=== PATIENT | female | born 1985 | race Caucasian/White ===

== ENCOUNTER 2024-04-22 11:34 | Inpatient (IN) ==
[2024-04-22] MEDS: SODIUM CHLORIDE 0.9% 1,000 ML IV SCH (12:33)
[2024-04-22] MEDS: ACETAMINOPHEN 1,000 MG/100 ML VIAL IV STA (12:35)
[2024-04-22] MEDS: cefTRIAXone SODIUM 2,000 MG/50 ML BAG IV STA (12:35)
--- NOTE | 2024-04-22 12:35 | XRay Report ---
XR chest 1V portable CLINICAL HISTORY: Sepsis COMPARISON STUDY: 11/13/2008 FINDINGS: There are interval metallic foreign bodies overlying the upper chest centrally. Heart size and pulmonary vasculature are normal. Inspiration is shallow. No effusion, consolidation, or pneumoth orax. IMPRESSION: 1. Interval foreign bodies overlying the upper central chest. 2. No other acute findings seen. ACT 112: Negative or not required by law. Electronically signed by: Prakash Gay M.D. 04/22/2024 12:33 PM
[2024-04-22 12:48] LABS: Basophils # (auto) 0.03 K/uL (0.00-0.20); Basophils % (auto) 0.4 %; Eosinophils # (auto) 0.03 K/uL (0.00-0.50); Eosinophils % (auto) 0.4 %; Hematocrit (blood only) 32.9 % (37.0-47.0); Hemoglobin 11.2 g/dl (12.0-16.0); Immature Granulocytes # (auto) 0.02 K/uL (0.01-0.20); Immature Granulocytes % (auto) 0.3 %; Lymphocytes # (auto) 1.28 K/uL (1.20-3.40); Lymphocytes % (auto) 18.2 %; Mean Corpuscular Volume 82.3 fL (80.0-100.0); Mean Platelet Volume 9.6 fL (9.4-12.4); Monocytes # (auto) 0.35 K/uL (0.11-0.59); Neutrophils # (auto) 5.34 K/uL (1.40-6.50); Neutrophils % (auto) 75.7 %; Platelet Count 430 K/uL (130-400); RDW Coefficient of Variation 12.8 % (11.5-14.5); RDW Standard Deviation 38.9 fL (36.4-46.3); White Blood Count 7.05 K/ul (4.8-10.8)
[2024-04-22 13:06] LABS: Alanine Aminotransferase 13 U/L (7-52); Albumin Level 3.3 gm/dl (3.4-5.0); Alkaline Phosphatase 139 U/L (34-104); Anion Gap 12 (3-11); Aspartate Aminotransferase 23 U/L (13-39); Bilirubin Direct 0.1 mg/dl (0-0.2); Bilirubin,Total 0.4 mg/dl (0.2-1.0); Blood Urea Nitrogen 4 mg/dl (6-23); Calcium 8.9 mg/dl (8.6-10.3); Carbon Dioxide 22 mmol/L (21-32); Chloride 87 mmol/L (98-107); Glucose 104 mg/dl (70-99(Fasting)); Lipase 25 U/L (11-82); Magnesium 1.4 mg/dl (1.7-2.4); Phosphorus 2.6 mg/dl (2.5-4.9); Potassium 3.7 mmol/L (3.5-5.1); Sodium 121 mmol/L (136-145); Total Protein 6.6 gm/dl (6.0-8.3)
[2024-04-22 13:12] LABS: Troponin I High Sensitivity 3.5 pg/ml (0-14)
[2024-04-22 13:18] LABS: INR 1.4 (0.9-1.1); Prothrombin Time 14.6 Seconds (9.0-12.0)
[2024-04-22 13:20] LABS: Thyroid Stimulating Hormone 0.657 uIu/ml (0.300-4.500)
[2024-04-22] MEDS: OPTIRAY 320 125ml IV ONE (13:37)
[2024-04-22 13:50] LABS: Adenovirus PCR Not Detected (NotDetected); Bordetella parapertussis PCR Not Detected (NotDetected); Bordetella pertussis PCR Not Detected (NotDetected); Chlamydia pneumoniae PCR Not Detected (NotDetected); Coronavirus 229E PCR Not Detected (NotDetected); Coronavirus CoV-2 (COVID19)PCR Not Detected (NotDetected); Coronavirus HKU1 PCR Not Detected (NotDetected); Coronavirus NL63 PCR Not Detected (NotDetected); Coronavirus OC43PCR Not Detected (NotDetected); Human Metapneumovirus PCR Not Detected (NotDetected); Influenza A PCR Not Detected (NotDetected); Influenza B PCR Not Detected (NotDetected); Mycoplasma pneumoniae PCR Not Detected (NotDetected); Parainfluenza Virus 1 PCR Not Detected (NotDetected); Parainfluenza Virus 2 PCR Not Detected (NotDetected); Parainfluenza Virus 3 PCR Not Detected (NotDetected); Parainfluenza Virus 4 PCR Not Detected (NotDetected); Respiratory Syncytial VirusPCR Not Detected (NotDetected); Rhinovirus/Enterovirus PCR Not Detected (NotDetected)
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
--- NOTE | 2024-04-22 14:12 | CT Scan Report ---
ABDOMEN AND PELVIS CT WITH IV CONTRAST HISTORY: Acute sepsis with fever sepsis, fever, h/o paraplegia, wound vacs TECHNIQUE: Multiaxial CT images of the abdomen and pelvis were performed following the IV administrat ion of 118 cc of Optiray, A dose lowering technique was utilized adhering to the principles of ALARA . COMPARISON STUDY: CT chest of same day FINDINGS: Chest CT dictated separately. Mild linear left basilar atelectasis versus scarring. There i s no pneumatosis or pneumoperitoneum. Unremarkable spleen, pancreas, gallbladder, adrenal glands and liver. Patency of the hepatic and port al veins. There are a few subcentimeter hypodensities of the kidneys which are too small to character ize, likely cysts. No hydronephrosis. Decompressed bladder with suprapubic catheter in place. Unremar kable uterus. 3.6 m left ovarian dermoid. Moderate atherosclerosis of the aorta. Subcentimeter retrop eritoneal lymph nodes are likely physiologic. No bowel obstruction or bowel wall thickening. Left lower quadrant colostomy. Normal appendix. Postop erative changes of the spine. Soft tissue thickening within the right superior gluteal cleft suggesti ve of a chronic ulcer. Moderate asymmetric edema and prominence of the right gluteal musculature. Dem ineralized appearance of the bones with postoperative changes of the lumbar spine. Prominence of the soft tissues surrounding the left hip. Chronic bony defect at S4 with absent inferior sacrum and cocc yx. IMPRESSION: 1. Sacral decubitus ulcer with chronic osteomyelitis of the sacrum/coccyx. There is cellulitis at the ulcer site without drainable abscess. 2. Asymmetric prominence and edema within the right gluteal musculature. 3. No bowel obstruction or bowel wall thickening. 4. Left ovarian dermoid. 5. Incidental findings as above. ACT 112: Negative or not required by law. The above report was generated using voice recognition software. It may contain grammatical, syntax o r spelling errors. Electronically signed by: Olivier Vega M.D. 04/22/2024 2:10 PM
[2024-04-22] MEDS ORDERED: GLUCAGON FOR INJ 1 MG VIAL SQ PRN (14:44)
[2024-04-22] MEDS ORDERED: DEXTROSE 50% 50 ML SYRINGE IV PRN (14:44)
[2024-04-22] MEDS ORDERED: CARBOHYDRATES FOR HYPOGLYCEMIA PO PRN (14:44)
[2024-04-22] MEDS ORDERED: GLUCOSE 40% GEL 15 GM TUBE PO PRN (14:44)
[2024-04-22] MEDS ORDERED: GLUCOSE 10 TAB/TUBE PO PRN (14:44)
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
[2024-04-22] MEDS ORDERED: VANCOMYCIN CONSULT ACTIVE PRN (16:01)
--- NOTE | 2024-04-22 16:19 | Electrocardiogram Report ---
Test Reason : Blood Pressure : */* mmHG Vent. Rate : 96 BPM Atrial Rate : 96 BPM P-R Int : 142 ms QRS Dur : 74 ms QT Int : 330 ms P-R-T Axes : -20 8 -18 degrees QTcB Int : 416 ms Normal sinus rhythm Low voltage QRS Nonspecific T wave abnormality Abnormal ECG Confirmed by Elbert Almonte ([id number]) on 04/22/2024 4:18:35 PM Referred By: Confirmed By: Elbert Almonte
[2024-04-22] MEDS: MAGNESIUM SULFATE / D5W 1 GM/100 ML BAG IV SCH (16:22)
[2024-04-22 17:00] LABS: Appearance Urine Clear (Clear); Bacteria Urine Automated 1+ (None Seen); Bilirubin Urine Negative (Negative); Blood Urine Trace (Negative); Cast Urine Automated 0-2 /lpf (0-2); Color Urine Yellow; Epithelial Cell Urine Auto 0-2 /hpf (0-2); Glucose Urine UA Negative (Negative); Ketones Urine 1+ (Negative); Leukocyte Esterase Urine 2+ (Negative); Nitrite Urine Negative (Negative); Protein Urine Negative (Negative); Specific Gravity Urine 1.022 (1.000-1.030); Urobilinogen Urine Negative (Negative); WBC Urine Automated 21-50 /hpf (0-5)
[2024-04-22] MEDS: FAMOTIDINE 20MG IV PUSH 20 MG/5 ML SYR IV SCH (17:15)
[2024-04-22] MEDS: PIPERACILLIN/TAZOBACTAM 4.5 GM/100 ML BAG IV SCH ×2 (17:15→21:21)
[2024-04-22] MEDS: VANCOMYCIN HCL 2,000 MG in SODIUM CHLORIDE 0.9% 500 ML IV SCH (18:28)
[2024-04-22 18:29] LABS: Adenovirus F 40/41 PCR Not Detected (NotDetected); Astrovirus PCR Not Detected (NotDetected); Campylobacter PCR Not Detected (NotDetected); Cryptosporidium PCR Not Detected (NotDetected); Cyclospora cayetanensis PCR Not Detected (NotDetected); Entamoeba histolytica PCR Not Detected (NotDetected); Enteroaggregative E.coli(EAEC) Not Detected (NotDetected); Enteropathogenic E.coli (EPEC) Not Detected (NotDetected); Enterotoxigenic E.coli (ETEC) Not Detected (NotDetected); Giardia lamblia PCR Not Detected (NotDetected); Plesiomonas shigelloides PCR Not Detected (NotDetected); Rotavirus A PCR Not Detected (NotDetected); Salmonella PCR Not Detected (NotDetected); Sapovirus PCR Not Detected (NotDetected); Shiga-like Toxin E.coli (STEC) Not Detected (NotDetected); Shigella/Enteroinvasive E.coli Not Detected (NotDetected); Vibrio cholerae PCR Not Detected (NotDetected); Vibrio species PCR Not Detected (NotDetected); Yersinia enterocolitica PCR Not Detected (NotDetected)
[2024-04-22 18:40] LABS: Norovirus GI/GII PCR DETECTED (NotDetected)
[2024-04-22] MEDS: INSULIN ASPART PER UNIT CHARGE SC SCH (19:24)
--- NOTE | 2024-04-22 19:59 | Communication Note ---
Date of Service: April 22, 2024 Stool BioFire positive for norovirus. This may explain patient's abdominal discomfort and nausea. Will continue with supportive care Check CRP in a.m. for further guidance on severity of wound and possible cellulitis of the sacrum.
[2024-04-22] MEDS: oxyCODONE HCL IR 5 MG TAB (IMMEDIATE RELEASE) PO PRN (21:11)
[2024-04-22] MEDS: GABAPENTIN 300 MG CAP PO SCH (21:30)
[2024-04-22] MEDS: HEPARIN SOD 5,000 UNIT/0.5 ML VIAL SQ SCH (21:35)
[2024-04-23] MEDS: ONDANSETRON 4 MG OD TAB PO PRN (01:52)
[2024-04-23] MEDS: VANCOMYCIN HCL 1,250 MG in SODIUM CHLORIDE 0.9% 250 ML IV SCH (02:14)
[2024-04-23 11:02] LABS: BUN Creatinine Ratio 4.9 (10-20); C Reactive Protein 3.86 mg/dl (0-0.5); Creatinine Clr Calc Pharmacy 136.7 ml/min; Potassium 3.5 mmol/L (3.5-5.1)
[2024-04-23 11:28] LABS: Partial Thromboplastin Ratio 1.2; Partial Thromboplastin Time 32 Seconds (21-31)
[2024-04-23] MEDS: FERROUS SULFATE 325 MG/7.4 ML UDP PO SCH (13:00)
[2024-04-23] MEDS: CHERRY SYRUP 5 ML UDP PO SCH (13:00)
[2024-04-23] MEDS: VANCOMYCIN HCL 125 MG/2.5ML SOLN PO SCH (13:01)
[2024-04-23] MEDS: DEXTROAMPHETAMINE/AMPHETAMINE IR 20 MG TAB PO SCH (13:01)
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
[2024-04-23] MEDS: AMOXICILLIN/CLAVULANATE 875 MG TAB PO SCH (17:50)
[2024-04-23] MEDS: HYDROmorphone INJ 0.5 MG/0.5 ML SYR IV PRN (20:48)
[2024-04-23] MEDS: DOXYCYCLINE HYCLATE 100 MG CAP PO SCH (20:48)
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
[2024-04-24] MEDS: ERTAPENEM 1000MG 1,000 MG/10 ML SYR IV SCH (17:06)
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
[2024-04-24] MEDS: GABAPENTIN 300 MG CAP PO SCH (21:12)
--- NOTE | 2024-04-24 21:56 | Electrocardiogram Report ---
Test Reason : Blood Pressure : */* mmHG Vent. Rate : 98 BPM Atrial Rate : 98 BPM P-R Int : 140 ms QRS Dur : 72 ms QT Int : 350 ms P-R-T Axes : 64 21 126 degrees QTcB Int : 446 ms Poor data quality, interpretation may be adversely affected Normal sinus rhythm Anterior infarct , age undetermined Nonspecific ST and T wave abnormality Abnormal ECG When compared with ECG of 22-Apr-2024 11:59, No significant change Confirmed by Aristeo Goldstein ([id number]) on 04/24/2024 9:56:23 PM Referred By: REFERRED SELF Confirmed By: Aristeo Goldstein
--- NOTE | 2024-04-24 21:57 | Electrocardiogram Report ---
Test Reason : Blood Pressure : */* mmHG Vent. Rate : 100 BPM Atrial Rate : 100 BPM P-R Int : 142 ms QRS Dur : 70 ms QT Int : 374 ms P-R-T Axes : 54 3 184 degrees QTcB Int : 482 ms Normal sinus rhythm Low voltage QRS Cannot rule out Inferior infarct , age undetermined Cannot rule out Anterior infarct (cited on or before 23-Apr-2024) Nonspecific ST and T wave abnormality Prolonged QT Abnormal ECG When compared with ECG of 23-Apr-2024 03:19, No significant change was found Confirmed by Aristeo Goldstein ([id number]) on 04/24/2024 9:57:00 PM Referred By: REFERRED SELF Confirmed By: Aristeo Goldstein
[2024-04-25 12:05] VITALS: BP 127/91; PULSE 103; RESP 19; TEMP 98.4; O2SAT 98
[2024-04-25] MEDS: GENTAMICIN SULFATE 420 MG in DEXTROSE 5% 100 ML IV ONE (12:28)
[2024-04-25 12:46] LABS: Hematocrit (blood only) 30.7 % (37.0-47.0); Hemoglobin 10.5 g/dl (12.0-16.0); Mean Corpuscular Hgb Conc 34.2 g/dL (32.0-36.0); Mean Corpuscular Volume 81.9 fL (80.0-100.0); Mean Platelet Volume 9.4 fL (9.4-12.4); Platelet Count 437 K/uL (130-400); RDW Standard Deviation 38.9 fL (36.4-46.3); Red Blood Count 3.75 M/uL (4.20-5.40); White Blood Count 5.41 K/ul (4.8-10.8)
[2024-04-25 13:01] LABS: BUN Creatinine Ratio 7.3 (10-20); Calcium 8.7 mg/dl (8.6-10.3); Potassium 3.1 mmol/L (3.5-5.1)
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
== END 2024-04-25 14:44 | DRG 698 ==
LOC: ED 11:34 → EDINP 17:04 → SUATTDRO 17:04 → 4W 19:56